=== PATIENT | female | born 1990 | race Two or more races ===

== ENCOUNTER 2024-04-01 10:02 | Emergency (ER) | payer MEDICAID, SELFPAY ==
[2024-04-01 10:05] VITALS: BMI 39.2
[2024-04-01 10:25] VITALS: BP 142/82; PULSE 85; RESP 19; TEMP 36.8; O2SAT 97
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
[2024-04-01 11:57] LABS: HCG Qualitative,Urine Negative
== END 2024-04-01 13:04 | disposition home or self-care (01) ==
PROVIDERS: Nurse Practitioner Family; Emergency Provider Emergency Medicine; PCP Family Medicine
DX: S33.5XXA Sprain of ligaments of lumbar spine, initial encounter (principal); W22.8XXA Striking against or struck by other objects, initial encounter
CPT/HCPCS: 72131; 81025; 99284

== ENCOUNTER 2024-06-05 11:47 | Emergency (ER) | payer MEDICAID, SELFPAY ==
[2024-06-05 12:22] VITALS: BP 118/75; PULSE 109; RESP 19; TEMP 37.1; O2SAT 97
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
== END 2024-06-05 13:00 | disposition left against medical advice (07) ==
LOC: SERX 13:10
PROVIDERS: Emergency Provider Family Medicine
DX: M54.2 Cervicalgia (principal); R51.9 Headache, unspecified; M54.9 Dorsalgia, unspecified; R10.9 Unspecified abdominal pain; R26.2 Difficulty in walking, not elsewhere classified; V99.XXXA Unspecified transport accident, initial encounter; Z53.29 Procedure and treatment not carried out because of patient's decision for other reasons
CPT/HCPCS: 99281